=== PATIENT | male | born 1955 | race Caucasian/White ===

== ENCOUNTER 2017-05-29 12:34 | Emergency (ER) | payer BC ==
--- NOTE | 2017-05-29 12:36 | EDM.PDOC ---
ED HPI GENERAL MEDICAL PROBLEM - General Chief Complaint: Chest Pain Stated Complaint: [id number] CHEST PAIN Time Seen by Provider: 05/29/17 12:35 Source of Information: Reports: Patient, Old Records, RN, RN Notes Reviewed History Limitations: Reports: No Limitations - History of Present Illness INITIAL COMMENTS - FREE TEXT/NARRATIVE: Arrives to ER by POV with c/o recurrent left sided chest pain x2 weeks. The pain is usually at the left lower anterior chest, but had occurred at the left upper anterior chest a few times and radiated to the left shoulder a few times as well. Today the pain came again and was worse that before so he decided to come to the ER for evaluation. Pt denies shortness or breath, nausea, edema, palpitations, fever, or chills. Duration: Week(s): (2), Intermittent, Recurring Location: Reports: Chest Quality: Reports: Pressure Severity: Moderate Improves with: Reports: None Worsens with: Reports: None Context: Denies: Activity, Exercise, Lifting, Sick Contact, Trauma Associated Symptoms: Reports: No Other Symptoms Left Chest Pain Score (Numeric/FACES): 3 - Related Data Allergies Allergy/AdvReac Type Severity Reaction Status Date / Time No Known Allergies Allergy Verified 05/29/17 12:38 Home Meds: Home Meds Aspirin [Halfprin] 81 mg PO DAILY 03/26/15 [History] Cetirizine HCl 1 tab PO DAILY PRN 03/26/15 [History] Hydrochlorothiazide 50 mg PO DAILY 03/26/15 [History] Omeprazole 20 mg PO DAILY 03/26/15 [History] Potassium Chloride [Klor-Con M20] 20 meq PO DAILY 03/26/15 [History] Doxepin [SINEquan] 25 mg PO DAILY 05/29/17 [History] Omalizumab [Xolair] 300 mg .XX ASDIRECTED 05/29/17 [History] Past Medical History HEENT History: Reports: Allergic Rhinitis, Impaired Vision Cardiovascular History: Reports: Hypertension Respiratory History: Reports: Asthma Gastrointestinal History: Reports: GERD Social & Family History - Family History Family Medical History: Noncontributory - Tobacco Use Smoking Status *Q: Never Smoker Used Tobacco, but Quit: No Second Hand Smoke Exposure: No - Alcohol Use Days Per Week of Alcohol Use: 2 Number of Drinks Per Day: 2 Total Drinks Per Week: 4 - Recreational Drug Use Recreational Drug Use: No Drug Use in Last 12 Months: No ED ROS GENERAL - Review of Systems Review Of Systems: ROS reveals no pertinent complaints other than HPI. ED EXAM, GENERAL - Physical Exam Exam: See Below Exam Limited By: No Limitations General Appearance: Alert, WD/WN, No Apparent Distress Eye Exam: Bilateral Eye: Normal Inspection Ears: Normal External Exam, Hearing Grossly Normal Nose: Normal Inspection, Normal Mucosa, No Blood Throat/Mouth: Normal Inspection, Normal Lips, Normal Teeth, Normal Gums, Normal Oropharynx, Normal Voice, No Airway Compromise Head: Atraumatic, Normocephalic Neck: Normal Inspection, Supple, Non-Tender, Full Range of Motion Respiratory/Chest: No Respiratory Distress, Lungs Clear, Normal Breath Sounds, No Accessory Muscle Use, Chest Non-Tender Cardiovascular: Normal Peripheral Pulses, Regular Rate, Rhythm, No Edema, No Gallop, No JVD, No Murmur, No Rub GI/Abdominal: Normal Bowel Sounds, Soft, Non-Tender, No Organomegaly, No Distention, No Abnormal Bruit (Male) Exam: Deferred Rectal (Males) Exam: Deferred Back Exam: Normal Inspection, Full Range of Motion, NT Extremities: Normal Inspection, Normal Range of Motion, Non-Tender, Normal Capillary Refill, No Pedal Edema Neurological: Alert, Oriented, CN II-XII Intact, Normal Cognition, Normal Gait, No Motor/Sensory Deficits Psychiatric: Normal Affect, Normal Mood Skin Exam: Warm, Dry, Intact, Normal Color, No Rash EKG INTERPRETATION EKG Date: 05/29/17 Time: 12:40 Rhythm: Other (SR) Rate (Beats/Min): 79 [place]: Normal P-Wave: Present QRS: Other (LAFB) ST-T: Normal QT: Normal Comparison: NA - No Prior EKG EKG Interpretation Comments: No acute ischemic changes. Course - Vital Signs Last Recorded V/S: Last Vital Signs Temp 36.6 C 05/29/17 12:39 Pulse 93 05/29/17 12:39 Resp 16 05/29/17 12:39 BP 144/76 H 05/29/17 12:39 Pulse Ox 97 05/29/17 12:39 - Orders/Labs/Meds Orders: Active Orders 24 hr Category Date Time Status EKG 12 Lead [EKG Documentation Completion] [RC] STAT Care 05/29/17 12:38 Active Peripheral IV Care [RC] . DIRECTED Care 05/29/17 12:39 Active UA W/MICROSCOPIC [URIN] Stat Lab 05/29/17 13:18 Received Nitroglycerin [Nitrostat] Med 05/29/17 12:38 Active 0.4 mg SL Q5M PRN Sodium Chloride 0.9% [Saline Flush] Med 05/29/17 12:38 Active 10 ml FLUSH ASDIRECTED PRN Peripheral IV Insertion Adult [OM.PC] Stat Oth 05/29/17 12:38 Ordered Medication Orders Nitroglycerin (Nitrostat) 0.4 mg SL Q5M PRN PRN Reason: Chest Pain Sodium Chloride (Saline Flush) 10 ml FLUSH ASDIRECTED PRN PRN Reason: Keep Vein Open Last Admin: 05/29/17 12:59 Dose: 10 ml Labs: Laboratory Tests 05/29/17 05/29/17 05/29/17 Range/Units 12:50 12:50 12:50 WBC 5.3 (5.0-10.0) 10^3/uL RBC 4.34 L (4.6-6.2) 10^6/uL Hgb 14.5 (14.0-18.0) g/dL Hct 42.5 (40.0-54.0) % MCV 97.9 (80-100) fL MCH 33.4 (27.0-34.0) pg MCHC 34.1 (33.0-35.0) g/dL Plt Count 242 (150-450) 10^3/uL Neut % (Auto) 65.1 (42.2-75.2) % Lymph % (Auto) 23.1 (20.5-50.1) % [place] % (Auto) 10.2 H (2-8) % Eos % (Auto) 0.8 L (1.0-3.0) % Baso % (Auto) 0.8 (0.0-1.0) % D-Dimer, Quantitative < 100 (0-400) ng/mL Sodium 138 (135-145) mmol/L Potassium 3.5 L (3.6-5.0) mmol/L Chloride 101 (101-111) mmol/L Carbon Dioxide 24.0 (21.0-31.0) mmol/L Anion Gap 16.5 BUN 15 (7-18) mg/dL Creatinine 0.9 (0.6-1.3) mg/dL Est Cr Clr Drug Dosing 98.94 mL/min Estimated GFR (MDRD) > 60 BUN/Creatinine Ratio 16.66 Glucose 103 (74-105) mg/dL Calcium 9.5 (8.4-10.2) mg/dl Total Bilirubin 2.0 H (0.2-1.0) mg/dL AST 36 (10-42) IU/L ALT 40 (10-60) IU/L Alkaline Phosphatase 53 (42-121) IU/L Troponin I < 0.02 (0.00-0.02) ng/ml Total Protein 7.8 (6.7-8.2) g/dl Albumin 4.5 (3.2-5.5) g/dl Globulin 3.3 Albumin/Globulin Ratio 1.36 Amylase 51 (28-100) U/L Lipase 27 (22-51) U/L Meds: Medications Generic Name Dose Route Start Last Admin Trade Name Freq PRN Reason Stop Dose Admin Nitroglycerin 0.4 mg 05/29/17 12:38 Nitrostat SL Q5M PRN Chest Pain Sodium Chloride 10 ml 05/29/17 12:38 05/29/17 12:59 Saline Flush FLUSH 10 ml ASDIRECTED PRN Administration Keep Vein Open Discontinued Medications Generic Name Dose Route Start Last Admin Trade Name Freq PRN Reason Stop Dose Admin Aspirin 324 mg 05/29/17 12:38 05/29/17 12:51 Aspirin PO 05/29/17 12:39 324 mg ONETIME ONE Administration - Radiology Interpretation Free Text/Narrative:: CXR: No acute process. - Re-Assessments/Exams Free Text/Narrative Re-Assessment/Exam: 05/29/17 13:47 Pt was pain free throughout his ER stay. 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 Departure - Departure Time of Disposition: 13:48 Disposition: Home, Self-Care 01 Condition: Good Clinical Impression: Atypical chest pain Instructions: Nonspecific Chest Pain, [id number] Forms: ED Department Discharge Additional Instructions: Light activity as tolerated this week. Follow up in clinic with Dr. Mcgrath if not improving in 1 week. Return to ER if worse at any time. - My Orders Last 24 Hours: My Active Orders 05/29/17 12:38 EKG 12 Lead [EKG Documentation Completion] [RC] STAT Nitroglycerin [Nitrostat] 0.4 mg SL Q5M PRN Sodium Chloride 0.9% [Saline Flush] 10 ml FLUSH ASDIRECTED PRN Peripheral IV Insertion Adult [OM.PC] Stat 05/29/17 12:39 Peripheral IV Care [RC] . DIRECTED 05/29/17 13:18 UA W/MICROSCOPIC [URIN] Stat - Assessment/Plan Last 24 Hours: My Active Orders 05/29/17 12:38 EKG 12 Lead [EKG Documentation Completion] [RC] STAT Nitroglycerin [Nitrostat] 0.4 mg SL Q5M PRN Sodium Chloride 0.9% [Saline Flush] 10 ml FLUSH ASDIRECTED PRN Peripheral IV Insertion Adult [OM.PC] Stat 05/29/17 12:39 Peripheral IV Care [RC] . DIRECTED 05/29/17 13:18 UA W/MICROSCOPIC [URIN] Stat
[2017-05-29] MEDS ORDERED: Sodium Chloride 0.9% 10 ML Syringe FLUSH PRN (12:38)
[2017-05-29] MEDS ORDERED: Nitroglycerin 0.4 MG Tab.SL SL PRN (12:38)
[2017-05-29] MEDS ORDERED: Aspirin 81 MG Tab.Chew PO ONE (12:38)
[2017-05-29 13:21] LABS: CHLORIDE,CL 101 mmol/L (101-111); SODIUM,NA 138 mmol/L (135-145)
--- NOTE | 2017-05-29 13:40 | CR ---
Clinical history: 62-year-old male chest pain. Interpretation: Negative exam. AP portable chest with external director cardiac leads. Normal cardiac silhouette without cephalization of vascular flow, signs of alveolar edema or depende nt pleural effusion. No lung mass, hilar lymphadenopathy or focal lobar pneumonia. No atelectasis/collapse. No pneumothor ax. CONCLUSION: No cardiopulmonary abnormality.
[2017-05-29 14:05] VITALS: BP 123/73
--- NOTE | 2017-06-06 10:57 | EKG ---
05/29/2017- JOY MERRILL - EKG per my reading shows sinus rhythm with left ventricular fascicular block at a rate of 79. [facility] /[id number]
== END 2017-05-29 14:00 | disposition home or self-care (01) ==
LOC: DL.ED 12:34
DX: R07.89 Other chest pain (principal); I10 Essential (primary) hypertension; J45.909 Unspecified asthma, uncomplicated; K21.9 Gastro-esophageal reflux disease without esophagitis; Z79.82 Long term (current) use of aspirin; Z79.899 Other long term (current) drug therapy
CPT/HCPCS: 36415; 71010; 80053; 81001; 82150; 83690; 84484; 85025; 85379; 93005; 99285; A9270; J7050

== ENCOUNTER 2021-07-01 06:32 | Day surgery (SDC) | payer MEDICARE, BC ==
[~2021-07-01 06:32] MED LIST: Midazolam 1 MG/ML 2 ML SDV ONE; fentaNYL 100 MCG/2 ML SDV ONE
[2021-07-01] MEDS ORDERED: Midazolam 1 MG/ML 2 ML SDV IV ONE ×7 (06:33→07:42)
[2021-07-01] MEDS ORDERED: fentaNYL 100 MCG/2 ML SDV IV ONE ×4 (06:33→07:47)
[2021-07-01] MEDS ORDERED: Dextrose 5%-0.45% NaCl 1,000 ML IV SCH (06:45)
--- NOTE | 2021-07-01 08:31 | OR ---
DATE: 07/01/2021 PROCEDURE: Total colonoscopy. INSTRUMENT USED: [id number] Olympus video colonoscope. PREMEDICATION: Fentanyl 125 mcg intravenous, Versed 4 intravenous, nasal O2 cannula. The procedure was done under pulse oximetry, BP recording, and monitor worker. INDICATIONS: The patient with rectal bleeding. Colonoscopic examination is done for detection of any polypoid lesions and removal, endoscopic hemostasis therapy if needed. DESCRIPTION OF PROCEDURE: Initial rectal exam was unremarkable. Rigid anoscopy showed small internal hemorrhoids without bleeding from them. The colonoscope was passed with ease up to the ileocecal area. Photographs were taken of the normal-appearing cecum identified by landmarks of appendiceal orifice and double- bulged ileocecal folds. No bleeding was noted from any of the visualized areas at the commencement of the examination. The bowel preparation was found to be adequate, [place] scale 3 in transverse and left colon, 2 in right colon, total score 8. No stricture. No vascular ectasia. No large isolated ulcerations seen. No evidence of diffuse inflammatory bowel disease in the form of friability, contact bleeding, or ulcerations. No polyp or tumor mass identified. Probing the proximal sides of folds and flexures using adequate distention and clearing up the stool material, withdrawal of the scope was made, cecum to rectum time over 6 minutes. No bleeding was noted from any of the visualized areas at the completion of examination. IMPRESSION: Internal hemorrhoids. The patient tolerated the procedure well. [facility] /[id number]
[2021-07-01 10:28] VITALS: BP 106/74; PULSE 48
== END 2021-07-01 09:47 | disposition home or self-care (01) ==
LOC: DL.ENDO 06:32
PROVIDERS: ATTEND Internal Medicine Gastroenterology
DX: K62.5 Hemorrhage of anus and rectum (principal); K64.8 Other hemorrhoids; K21.9 Gastro-esophageal reflux disease without esophagitis; R82.994 Hypercalciuria; T78.3XXD Angioneurotic edema, subsequent encounter; N40.0 Benign prostatic hyperplasia without lower urinary tract symptoms; E78.00 Pure hypercholesterolemia, unspecified; F41.1 Generalized anxiety disorder; Z79.899 Other long term (current) drug therapy
CPT/HCPCS: 45378; J2250; J3010; J7042

== ENCOUNTER 2023-04-03 06:57 | Day surgery (SDC) | payer MEDICARE, BC ==
[~2023-04-03 06:57] MED LIST changes: +Dextrose 5%-0.45% NaCl 1,000 ML IV SCH; -Midazolam 1 MG/ML 2 ML SDV ONE; -fentaNYL 100 MCG/2 ML SDV ONE
[2023-04-03] MEDS ORDERED: Midazolam 1 MG/ML 2 ML SDV ONE (07:40)
[2023-04-03] MEDS ORDERED: fentaNYL 100 MCG/2 ML SDV ONE (07:40)
[2023-04-03] MEDS ORDERED: fentaNYL 100 MCG/2 ML SDV IV ONE ×2 (07:46→07:47)
[2023-04-03] MEDS ORDERED: Midazolam 1 MG/ML 2 ML SDV IV ONE ×2 (07:47→07:48)
[2023-04-03 10:03] VITALS: BP 111/65; PULSE 52
== END 2023-04-03 09:30 | disposition home or self-care (01) ==
LOC: DL.ENDO 06:57
PROVIDERS: ATTEND Internal Medicine Gastroenterology
DX: K31.A11 Gastric intestinal metaplasia without dysplasia, involving the antrum (principal); K44.9 Diaphragmatic hernia without obstruction or gangrene; K21.9 Gastro-esophageal reflux disease without esophagitis; F41.1 Generalized anxiety disorder; F32.A Depression, unspecified; M85.80 Other specified disorders of bone density and structure, unspecified site; E80.6 Other disorders of bilirubin metabolism; E78.00 Pure hypercholesterolemia, unspecified; N40.0 Benign prostatic hyperplasia without lower urinary tract symptoms; R73.9 Hyperglycemia, unspecified; K64.8 Other hemorrhoids; E55.9 Vitamin D deficiency, unspecified; Z98.890 Other specified postprocedural states
CPT/HCPCS: 43239; 87077; J2250; J3010; J7042

== ENCOUNTER 2023-06-14 05:57 | Day surgery (SDC) | payer MEDICARE, BC ==
[2023-06-14] MEDS ORDERED: fentaNYL 100 MCG/2 ML SDV IV ONE ×3 (05:58→06:55)
[2023-06-14] MEDS ORDERED: Midazolam 1 MG/ML 2 ML SDV IV ONE ×3 (05:58→06:56)
[2023-06-14] MEDS ORDERED: Dextrose 5%-0.45% NaCl 1,000 ML IV SCH (06:00)
[2023-06-14] MEDS ORDERED: Midazolam 1 MG/ML 2 ML SDV ONE (06:19)
[2023-06-14] MEDS ORDERED: fentaNYL 100 MCG/2 ML SDV ONE (06:20)
[2023-06-14 08:51] VITALS: BP 108/72; PULSE 47
== END 2023-06-14 08:35 | disposition home or self-care (01) ==
LOC: DL.ENDO 05:57
PROVIDERS: ATTEND Internal Medicine Gastroenterology
DX: K21.00 Gastro-esophageal reflux disease with esophagitis, without bleeding (principal); K44.9 Diaphragmatic hernia without obstruction or gangrene; F41.1 Generalized anxiety disorder; Z88.8 Allergy status to other drugs, medicaments and biological substances
CPT/HCPCS: 43235; J2250; J3010; J7042

== ENCOUNTER 2024-09-11 06:51 | Day surgery (SDC) | payer MEDICARE, BC ==
[~2024-09-11 06:51] MED LIST changes: -Dextrose 5%-0.45% NaCl 1,000 ML IV SCH; +Midazolam 1 MG/ML 2 ML SDV IV ONE; +Midazolam 1 MG/ML 2 ML SDV ONE; +fentaNYL 100 MCG/2 ML SDV IV ONE; +fentaNYL 100 MCG/2 ML SDV ONE
[2024-09-11] MEDS: Dextrose 5%-0.45% NaCl 1,000 ML IV SCH (07:14)
[2024-09-11] MEDS: fentaNYL 100 MCG/2 ML SDV IV ONE ×2 (07:50→07:51)
[2024-09-11] MEDS: Midazolam 1 MG/ML 2 ML SDV IV ONE ×2 (07:51→07:52)
[2024-09-11 09:03] VITALS: BP 105/73; PULSE 53
== END 2024-09-11 09:39 | disposition home or self-care (01) ==
LOC: DL.ENDO 06:51
PROVIDERS: ATTEND Internal Medicine Gastroenterology
DX: K21.9 Gastro-esophageal reflux disease without esophagitis (principal); K44.9 Diaphragmatic hernia without obstruction or gangrene
CPT/HCPCS: 43239; J2250; J3010; J7799; 88305